=== PATIENT | female | born 1975 | race Caucasian/White ===

== ENCOUNTER 2017-02-03 11:13 | Inpatient (IN) | payer SELFPAY ==
[~2017-02-03] VITALS: Ht 165.1 cm; Wt 67.1 kg
[2017-02-03 11:16] VITALS: BP 97/61
[2017-02-03] MEDS ORDERED: LORazepam 2 MG/ML VIAL IVP ONE (11:30)
[2017-02-03] MEDS ORDERED: NACL 0.9% 1,000 ML IV ONE ×2 (11:30→16:25)
--- NOTE | 2017-02-03 11:33 | NUR ---
PT TO BED 3 AT THIS TIME,
--- NOTE | 2017-02-03 11:45 | NUR ---
PT TO CT SCAN VIA [facility]
--- NOTE | 2017-02-03 12:19 | NUR ---
PT BACK FROM CT SCAN, REPORTS FEELING BETTER. VSS. IV FLUIDS INFUSING WELL. PT AWARE OF NEEDED URINE.
[2017-02-03] MEDS ORDERED: ASPIRIN 325 MG TAB PO ONE (12:35)
--- NOTE | 2017-02-03 12:41 | NUR ---
PT AMBULATED TO BATHROOM, STEADY GAIT. URINE COLLECTED AND SENT.
--- NOTE | 2017-02-03 13:18 | NUR ---
PT SLEEPING, BOYFRIEND AT BEDSIDE. IV FLUIDS INFUSING WELL.
--- NOTE | 2017-02-03 13:27 | NUR ---
REPORT GIVEN TO YARELI MOODY, UPDATED ON STATUS, LABS AND VITALS. PT STABLE FOR TRANSFER. PT INFORMED OF PLAN OF CARE, VERBALIZED UNDERSTANDING. IV SL-INTACT, IV FLUIDS INFUSING WELL.
[2017-02-03] MEDS ORDERED: ACETAMINOPHEN 325 MG TAB PO PRN (13:45)
[2017-02-03] MEDS ORDERED: ONDANSETRON 4 MG/2 ML VIAL IVP PRN (13:45)
[2017-02-03] MEDS ORDERED: HYDROcodone/APAP 5/325 MG 1 TAB TAB PO PRN (13:45)
[2017-02-03] MEDS ORDERED: NACL 0.9% 1,000 ML IV SCH (13:45)
[2017-02-03 14:00] VITALS: BP 89/52
--- NOTE | 2017-02-03 14:00 | NUR ---
ADMITTED 42/F FROM ER TO TELE RM 123B, RECEIVED PT [id number], ABLE TO VERBALIZE NEED; MILD RIGHT SIDED WEAKNESS, AMBULATES WITH MINIMAL ASSISTANCE. NO COMPLAINTS OF PAIN, N/V/D, OR S/S ACUTE DISTRESS AT THIS TIME. ROUTINE/PLAN OF CARE DISCUSSED AND REVIEWED, PT VERBALIZES UNDERSTANDING AND COMPLIANCE. FRIEND IS PRESENT. IVF TO LEFT AC, SITE ASYMPTOMATIC. ORIENTED PT TO ROOM AND CALL LIGHT. SAFETY PRECAUTIONS OBSERVED AND MAINTAINED, ENCOURAGED PT TO CALL FOR ASSISTANCE NEEDED.
--- NOTE | 2017-02-03 15:00 | NUR ---
PT EVALUATED BY DR CARO AT BEDSIDE. AWARE OF PT HYPOTENSION. HELD BP MEDS.
[2017-02-03] MEDS ORDERED: ATORVASTATIN 20 MG TAB PO SCH ×4 (15:05→21:00)
[2017-02-03] MEDS ORDERED: PNEUMOCOCCAL VACCINE 23 MCG/0.5 ML VIAL IMVAC SCH (15:10)
[2017-02-03] MEDS ORDERED: LISINOPRIL 10 MG TAB PO SCH (15:50)
[2017-02-03 16:00] VITALS: BP 82/55
[2017-02-03] MEDS ORDERED: METOPROLOL 25 MG TAB PO SCH ×2 (16:03→21:00)
--- NOTE | 2017-02-03 16:15 | NUR ---
CAROTID US DONE AT BEDSIDE.
[2017-02-03] MEDS ORDERED: MECLIZINE 25 MG TAB PO PRN (16:25)
--- NOTE | 2017-02-03 17:30 | NUR ---
PER PT, DR CARO STATES SHE CAN EAT. LEFT A MESSAGE ON RESIDENT PHONE NUMBER FOR DIET ORDERS.
[2017-02-03 17:45] VITALS: BP 92/56
[2017-02-03] MEDS ORDERED: SODIUM PHOS / POTASSIUM PHOS 1 PKT PDR PO SCH (19:05)
--- NOTE | 2017-02-03 19:25 | NUR ---
RECEIVED REPORT AT BEDSIDE, PT STATING SHE WANTS TO GO HOME. EXPLAINED TO PT HE BP IS LOW. SHE STATED SHE WOULD BE RESPONSIBLE, AND WANTS TO GO HOME. PT UNCOOPERATIVE TO ANSWER QUESTIONS, WILL NOTIFY
--- NOTE | 2017-02-03 19:30 | NUR ---
CONDITION STABLE, ENDORSED PLAN OF CARE TO IT ACCOUNT MANAGER RN.
--- NOTE | 2017-02-03 19:40 | NUR ---
DR GONCALVES CALLED BACK AND STATED THAT IS OK FOR PT TO GO HOME. PT SIGNED AMA. PT GOING HOME IN STABLE CONDITION ACCOMPANIED BY FAMILY MEMBER.
[2017-02-03] MEDS ORDERED: CALCIUM CARBONATE 500 MG TAB PO SCH (21:00)
[2017-02-03] MEDS ORDERED: SACCHAROMYCES 250 MG CAP PO SCH (21:00)
[2017-02-04] MEDS ORDERED: ECOTRIN 81 MG TABEC PO SCH ×2 (09:00)
[2017-02-04] MEDS ORDERED: LISINOPRIL 10 MG TAB PO SCH (09:00)
[2017-02-04] MEDS ORDERED: INFLUENZA VIRUS VACCINE QUAD 0.5 ML SYR IMVAC SCH (15:10)
== END 2017-02-03 19:45 | disposition left against medical advice (07) | DRG 65 ==
LOC: MED 11:14 → MTU 13:41
PROVIDERS: ADMIT Family Medicine; ATTEND Family Medicine
DX: I63.9 Cerebral infarction, unspecified (principal); N39.0 Urinary tract infection, site not specified; G90.9 Disorder of the autonomic nervous system, unspecified; F17.210 Nicotine dependence, cigarettes, uncomplicated; K21.9 Gastro-esophageal reflux disease without esophagitis; E83.39 Other disorders of phosphorus metabolism; I95.9 Hypotension, unspecified; E87.8 Other disorders of electrolyte and fluid balance, not elsewhere classified; E83.51 Hypocalcemia; F41.9 Anxiety disorder, unspecified; F19.10 Other psychoactive substance abuse, uncomplicated; Z53.21 Procedure and treatment not carried out due to patient leaving prior to being seen by health care provider; Z98.890 Other specified postprocedural states; Z85.841 Personal history of malignant neoplasm of brain; Z86.011 Personal history of benign neoplasm of the brain; Z79.899 Other long term (current) drug therapy